=== PATIENT | female | born 1965 | race Caucasian/White ===

== ENCOUNTER 2018-03-21 02:08 | Emergency (ER) | payer OTHER ==
[~2018-03-21] VITALS: Ht 154.9 cm; Wt 74.8 kg
[2018-03-21 02:13] VITALS: BP 150/94
[2018-03-21] MEDS ORDERED: ACETAMINOPHEN 325 MG TAB PO ONE (02:25)
--- NOTE | 2018-03-21 02:29 | NUR ---
52/F PRESENTS TO ED WITH , C/O SUDDEN ONSET R ARM NUMBNESS AND TONGUE NUMBNESS, STARTED 6 HRS AGO WHILE PT WAS LAYING DOWN. PT AOX4, GCS 15, PERRLA, AMBULAOTRY. SPEECH CLEAR, NO FACIAL DROOP, +ARM COORDINATION, NORMAL PERIPHERAL STRENGTH. PT REPORTS HEADACHE THAT ALSO STARTED 6 HOURS AGO. PT REPORTS NONPRODUCTIVE COUGH X5 DAYS, REPORTS PLEURITIC CHEST PAIN. TEMP 100.7, COOLING MEASURES INITIATED, TYLENOL GIVEN PER PROTOCOL. HX "NECK LESIONS, BACK PROBLEMS, LEG PROBLEMS," HYSTERECTOMY
[2018-03-21] MEDS ORDERED: KETOROLAC 60 MG/2 ML VIAL IM ONE (02:40)
--- NOTE | 2018-03-21 03:58 | NUR ---
PT LAYING IN BED, RR EVEN AND UNLABORED. REPORTS IMPROVEMENT IN RELIEF OF HEADACHE, /10 AT THIS TIME. TEMP 100.6, ICE PACKS REINSTATED AND ENSURED. ALL NEEDS MET.
[2018-03-21 04:00] VITALS: BP 133/76
--- NOTE | 2018-03-21 04:00 | NUR ---
Patient discharged with v/s stable. Written and verbal after care instructions given and explained. Patient alert, oriented and verbalized understanding of instructions. Ambulatory with steady gait. All questions addressed prior to discharge. ID band removed. Patient advised to follow up with PMD. Rx of PROMETHAZINE AND MOTRIN given. Patient educated on indication of medication including possible reaction and side effects. Opportunity to ask questions provided and answered.
== END 2018-03-21 04:00 | disposition home or self-care (01) ==
LOC: MED 02:08
DX: J06.9 Acute upper respiratory infection, unspecified (principal); R03.0 Elevated blood-pressure reading, without diagnosis of hypertension
CPT/HCPCS: 36415; 70450; 87804; 96372; 99284; J1885

== ENCOUNTER 2021-10-02 11:33 | Emergency (ER) | payer OTHER ==
[~2021-10-02] VITALS: Ht 157.5 cm; Wt 70.3 kg
[2021-10-02 11:38] VITALS: BP 135/89
--- NOTE | 2021-10-02 11:45 | NUR ---
55 Y/O FEMAL C/O DYSURIA, HEMATURIA AND PALPITATIONS SINCE LAST NIGHT, REPORTS TAKING MEDICATION FOR SYMPTOMS WITH NO RELIEF. PAIN RATED 9/10 RADIATES TO LOW BACK. PT STATES SHE SUFFERS FROM CHRONIC UTI'S. PT DENIES CHEST PAIN, SOB. PT DENIES FEVER OR CHILLS. PMH: FIBROMYLAGIA, CHRONIC UTI, DM NKDA
[2021-10-02] MEDS ORDERED: KETOROLAC 15 MG/ML VIAL IVP ONE (13:20)
[2021-10-02] MEDS ORDERED: NACL 0.9% 1,000 ML IV SCH (13:20)
[2021-10-02 14:22] LABS: BASOPHILS % (AUTO) 0.2 % (0.0-2.0); EOSINOPHILS % (AUTO) 0.2 % (0.0-4.0); HEMATOCRIT 42.3 % (36-48); HEMOGLOBIN 14.2 g/dL (12.0-16.0); LYMPHOCYTES % (AUTO) 13.1 % (20.5-51.1); MEAN CORPUSCULAR HEMOGLOBIN 32 pg (27-31); MEAN CORPUSCULAR HGB CONC 34 g/dL (33-37); MEAN CORPUSCULAR VOLUME 95.9 fL (80-94); MONOCYTES # (AUTO) 0.9 K/uL (0.8-1.0); MONOCYTES % (AUTO) 11.6 % (1.7-9.3); NEUTROPHILS # (AUTO) 5.6 K/uL (1.8-7.7); NEUTROPHILS % (AUTO) 74.9 % (42.2-75.2); PLATELET COUNT (AUTO) 262 K/uL (140-450); RED BLOOD CELL COUNT(AUTO) 4.41 MIL/uL (4.20-5.40); RED CELL DISTRIBUTION WIDTH 13.7 % (11.6-13.7); WHITE BLOOD COUNT (AUTO) 7.4 K/uL (4.8-10.8)
[2021-10-02 14:55] LABS: ALBUMIN 3.2 g/dL (3.4-5.0); ASPARTATE AMINOTRANSFERASE 40 U/L (15-37); CARBON DIOXIDE 24.7 mmol/L (21-32); CHLORIDE 108 mmol/L (98-107); CREATININE 0.7 mg/dL (0.6-1.3); GFR ARICAN-AMERICAN 111 mL/min (>90); GLUCOSE 114 mg/dL (74-106); LIPASE 93 U/L (73-393); POTASSIUM 3.7 mmol/L (3.5-5.1); SODIUM SERUM 140 mmol/L (136-145); TOTAL BILIRUBIN 0.4 mg/dL (0.0-1.0); UREA NITROGEN, BLOOD 11 mg/dL (7-18)
[2021-10-02] MEDS ORDERED: PHEN-1877 PO (15:03)
[2021-10-02] MEDS ORDERED: CEPH-588 PO (15:03)
[2021-10-02] MEDS ORDERED: ACET-10509 PO (15:03)
[2021-10-02 15:55] VITALS: BP 122/79
--- NOTE | 2021-10-02 15:56 | NUR ---
Patient discharged with v/s stable. Written and verbal after care instructions given and explained. Patient alert, oriented and verbalized understanding of instructions. Ambulatory with steady gait. All questions addressed prior to discharge. ID band removed. Patient advised to follow up with PMD. Rx of TYLENOL EXTRA STRENGTH/KEFLEX/PYRIDIUM given. Patient educated on indication of medication including possible reaction and side effects. Opportunity to ask questions provided and answered.
== END 2021-10-02 15:56 | disposition home or self-care (01) ==
LOC: MED 11:33
DX: N39.0 Urinary tract infection, site not specified (principal); R00.2 Palpitations; E11.9 Type 2 diabetes mellitus without complications; I10 Essential (primary) hypertension; Z79.899 Other long term (current) drug therapy; Z79.2 Long term (current) use of antibiotics
CPT/HCPCS: 36415; 80053; 81002; 81025; 83690; 84484; 85025; 93005; 96361; 96374; 99284; J1885; J7030

== ENCOUNTER 2022-04-01 07:27 | Day surgery (SDC) | payer OTHER ==
[~2022-04-01] VITALS: Ht 154.9 cm; Wt 68.9 kg
[~2022-04-01 07:27] MED LIST: ACET-10509 PO; CEPH-588 PO; PHEN-1877 PO
[2022-04-01] MEDS ORDERED: fentaNYL citrate 0.05 MG/ML VIAL ONE (08:06)
[2022-04-01] MEDS ORDERED: LIDOCAINE 2% 100 MG/5 ML UJET TP ONE (08:07)
[2022-04-01] MEDS ORDERED: fentaNYL citrate 0.05 MG/ML VIAL IVP ONE (09:40)
== END 2022-04-01 09:20 | disposition home or self-care (01) ==
LOC: MOR 07:27 → MMU 07:28 → MOR 09:20
PROVIDERS: ATTEND Internal Medicine Gastroenterology
DX: K62.5 Hemorrhage of anus and rectum (principal); K63.5 Polyp of colon; K57.30 Diverticulosis of large intestine without perforation or abscess without bleeding; E11.9 Type 2 diabetes mellitus without complications; F41.9 Anxiety disorder, unspecified; F32.A Depression, unspecified; Z80.0 Family history of malignant neoplasm of digestive organs; Z79.899 Other long term (current) drug therapy; Z20.822 Contact with and (suspected) exposure to COVID-19
CPT/HCPCS: 45385; 82948; 87426; J3010

== ENCOUNTER 2023-10-07 20:30 | Emergency (ER) | payer OTHER ==
[~2023-10-07] VITALS: Ht 157.5 cm; Wt 71.7 kg
[2023-10-07 20:30] VITALS: BP 168/98; PULSE 92; RESP 17; TEMP 97.8; O2SAT 96
[2023-10-07] MEDS: ONDANSETRON 4 MG/2 ML VIAL IVP ONE (21:51)
[2023-10-07] MEDS: MORPHINE SULFATE 4 MG/ML SYR IVP ONE (21:51)
[2023-10-07 21:55] LABS: BASOPHILS % (AUTO) 0.5 % (0.0-2.0); EOSINOPHILS # (AUTO) 0.1 K/uL (0-0.4); EOSINOPHILS % (AUTO) 1.1 % (0.0-4.0); HEMATOCRIT 43.2 % (36-48); HEMOGLOBIN 14.6 g/dL (12.0-16.0); LYMPHOCYTES # (AUTO) 2.7 K/uL (2.5-16.5); LYMPHOCYTES % (AUTO) 39.2 % (20.5-51.1); MEAN CORPUSCULAR HEMOGLOBIN 32 pg (27-31); MEAN CORPUSCULAR HGB CONC 34 g/dL (33-37); MEAN CORPUSCULAR VOLUME 93.9 fL (80-94); MONOCYTES # (AUTO) 0.6 K/uL (0.8-1.0); MONOCYTES % (AUTO) 8.7 % (1.7-9.3); NEUTROPHILS # (AUTO) 3.5 K/uL (1.8-7.7); NEUTROPHILS % (AUTO) 50.5 % (42.2-75.2); PLATELET COUNT (AUTO) 267 K/uL (140-450); RED CELL DISTRIBUTION WIDTH 13.7 % (11.6-13.7); WHITE BLOOD COUNT (AUTO) 6.9 K/uL (4.8-10.8)
[2023-10-07 22:08] LABS: ANION GAP 12.9 (8-16); CARBON DIOXIDE 25.9 mmol/L (21-32); CREATININE 0.8 mg/dL (0.6-1.3); POTASSIUM 3.8 mmol/L (3.5-5.1)
[2023-10-07] MEDS ORDERED: ACYC-279 PO (22:49)
[2023-10-07] MEDS ORDERED: ACET-8905 PO (22:49)
[2023-10-07 22:59] VITALS: BP 116/71; PULSE 64; RESP 18; TEMP 97.8; O2SAT 100
[2023-10-08 00:55] LABS: CALCIUM 8.1 mg/dL (8.5-10.1)
== END 2023-10-07 22:59 | disposition home or self-care (01) ==
LOC: MED 20:30
DX: B02.9 Zoster without complications (principal); R51.9 Headache, unspecified; L40.9 Psoriasis, unspecified; E11.9 Type 2 diabetes mellitus without complications; Z79.899 Other long term (current) drug therapy
CPT/HCPCS: 36415; 70450; 71045; 80048; 84484; 85025; 93005; 96374; 96375; 99285; J2270; J2405

== ENCOUNTER 2024-01-18 15:35 | Emergency (ER) | payer OTHER ==
[~2024-01-18] VITALS: Ht 157.5 cm; Wt 71.8 kg
[~2024-01-18 15:35] MED LIST changes: -ACET-10509 PO; +ACET-8905 PO; +ACET500T99 PO; +ACYC-279 PO
[2024-01-18 16:16] VITALS: BP 120/87; PULSE 109; RESP 18; TEMP 97.7; O2SAT 95
[2024-01-18] MEDS ORDERED: IBUP-2213 PO (17:17)
[2024-01-18] MEDS: KETOROLAC 60 MG/2 ML VIAL IM ONE (17:25)
== END 2024-01-18 17:55 | disposition home or self-care (01) ==
LOC: MED 15:35
DX: S90.31XA Contusion of right foot, initial encounter (principal); R03.0 Elevated blood-pressure reading, without diagnosis of hypertension; E11.9 Type 2 diabetes mellitus without complications; Z79.899 Other long term (current) drug therapy; W18.39XA Other fall on same level, initial encounter; Y92.89 Other specified places as the place of occurrence of the external cause; Y93.89 Activity, other specified; Y99.8 Other external cause status
CPT/HCPCS: 93971; 96372; 99285; J1885; Q0092